=== PATIENT | male | born 1965 | race Caucasian/White ===

== ENCOUNTER 2018-04-15 22:00 | Inpatient (IN) | payer MEDICARE, MEDICAID ==
[2018-04-15] MEDS: VANCOMYCIN HCL 1,000 MG, VIAL MATE ADAPTER 1 EACH in D5W 250 ML IV (22:45)
[2018-04-15] MEDS: ONDANSETRON 4MG/2ML VIAL (J2405) IV (22:45)
[2018-04-15 23:11] LABS: BASO # 0.1 10^3/uL (0.0-0.2); BASO % 0.3 % (0.0-1.0); EOS # 0.3 10^3/uL (0.0-0.50); EOS % 1.6 % (0.0-3.0); HEMATOCRIT 39.9 % (42.0-52.0); HEMOGLOBIN 12.4 g/dl (13.5-17.5); IMMATURE GRANULOCYTE % 1.1 % (0-3.0); LYMPH # 1.3 10^3/uL (1.5-4.5); LYMPH % 6.7 % (24.0-44.0); MEAN CORPUSCULAR HEMOGLOBIN 26.1 pg (27.0-33.0); MEAN CORPUSCULAR HGB CONC 31.1 g/dl (32.0-36.5); MEAN CORPUSCULAR VOLUME 83.8 fl (80.0-96.0); MONO # 1.2 10^3/uL (0.0-0.8); MONO % 6.3 % (0.0-5.0); NEUTROPHILS # 15.7 10^3/uL (1.8-7.7); PLATELET COUNT, AUTOMATED 256 10^3/uL (150-450); RED BLOOD COUNT 4.76 10^6/uL (4.30-6.10); RED CELL DISTRIBUTION WIDTH 13.9 % (11.5-14.5); WHITE BLOOD COUNT 18.7 10^3/uL (4.0-10.0)
[2018-04-15 23:23] LABS: INR 1.34; PROTHROMBIN TIME 16.8 SECONDS (12.1-14.4)
[2018-04-15 23:24] LABS: PARTIAL THROMBOPLASTIN TIME 37.9 SECONDS (25.4-37.6)
[2018-04-15] MEDS: MORPHINE 2 MG/ML 1ML SYRINGE (J2270) IV (23:27)
[2018-04-15] MEDS: PIPERACILLIN/TAZOBACTAM SOD 3.375 GM in D5W MINI-BAG PLUS 50 ML IV (23:30)
[2018-04-15 23:38] LABS: ERYTHROCYTE SEDIMENTATION RATE 42 mm/hr (0-20)
[2018-04-15] MEDS: NS 1,000 ML IV (23:39)
[2018-04-15] MEDS ORDERED: ONDANSETRON 4MG/2ML VIAL (J2405) IV (23:45)
[2018-04-15] MEDS ORDERED: GLUCAGON FOR INJ 1 MG VIAL (J1610) SC (23:45)
[2018-04-15] MEDS ORDERED: DEXTROSE 50% 50 ML SYRINGE IV (23:45)
[2018-04-15] MEDS ORDERED: GLUCOSE 4 GM CHEW TABLET PO (23:45)
[2018-04-15] MEDS: ACETAMINOPHEN TAB 650MG DOSE (2X325MG) PO (23:47)
[2018-04-16 00:08] LABS: ALBUMIN 2.7 GM/DL (3.2-5.2); ALBUMIN/GLOBULIN RATIO 0.51 (1.00-1.93); ALKALINE PHOSPHATASE 114 U/L (45-117); ALT/SGPT 18 U/L (12-78); ANION GAP 7 MEQ/L (8-16); AST/SGOT 21 U/L (7-37); BILIRUBIN,DIRECT 0.2 MG/DL (0.0-0.2); BILIRUBIN,TOTAL 0.4 MG/DL (0.2-1.0); BLOOD UREA NITROGEN 44 MG/DL (7-18); CALCIUM LEVEL 7.8 MG/DL (8.5-10.1); CARBON DIOXIDE LEVEL 24 MEQ/L (21-32); CHLORIDE LEVEL 99 MEQ/L (98-107); CPK CREATINE PHOSPHOKINASE 407 U/L (39-308); CREATININE FOR GFR 2.75 MG/DL (0.70-1.30); GLUCOSE, FASTING 290 MG/DL (70-100); MB/CK RELATIVE INDEX 0.91 (< OR =4); POTASSIUM SERUM 5.6 MEQ/L (3.5-5.1); SODIUM LEVEL 130 MEQ/L (136-145); TROPONIN I < 0.02 NG/ML (< 0.10)
[2018-04-16] MEDS ORDERED: CYCLOBENZAPRINE 5MG TABLET PO (01:45)
[2018-04-16] MEDS ORDERED: traZODone 100 MG TAB PO (01:45)
[2018-04-16 01:49] LABS: BEDSIDE GLUCOSE 274 MG/DL (70-105)
[2018-04-16 05:40] LABS: BASO # 0.1 10^3/uL (0.0-0.2); BASO % 0.3 % (0.0-1.0); EOS # 0.4 10^3/uL (0.0-0.50); EOS % 2.4 % (0.0-3.0); HEMATOCRIT 34.6 % (42.0-52.0); HEMOGLOBIN 10.7 g/dl (13.5-17.5); IMMATURE GRANULOCYTE % 1.3 % (0-3.0); LYMPH # 1.7 10^3/uL (1.5-4.5); LYMPH % 10.4 % (24.0-44.0); MEAN CORPUSCULAR HEMOGLOBIN 26.1 pg (27.0-33.0); MEAN CORPUSCULAR HGB CONC 30.9 g/dl (32.0-36.5); MEAN CORPUSCULAR VOLUME 84.4 fl (80.0-96.0); MONO # 1.1 10^3/uL (0.0-0.8); MONO % 6.7 % (0.0-5.0); NEUTROPHILS # 12.6 10^3/uL (1.8-7.7); NEUTROPHILS % 78.9 % (36.0-66.0); PLATELET COUNT, AUTOMATED 244 10^3/uL (150-450)
[2018-04-16] MEDS: SLF 3 ML SYR IV ×3 (06:00→20:14)
[2018-04-16 06:02] LABS: ANION GAP 5 MEQ/L (8-16); BLOOD UREA NITROGEN 44 MG/DL (7-18); CARBON DIOXIDE LEVEL 27 MEQ/L (21-32); CHLORIDE LEVEL 101 MEQ/L (98-107); CREATININE FOR GFR 2.62 MG/DL (0.70-1.30); GLOMERULAR FILTRATION RATE 27.5 (>56); GLUCOSE, FASTING 214 MG/DL (70-100); POTASSIUM SERUM 4.6 MEQ/L (3.5-5.1); SODIUM LEVEL 133 MEQ/L (136-145)
[2018-04-16] MEDS: PIPERACILLIN/TAZOBACTAM SOD 3.375 GM in D5W MINI-BAG PLUS 50 ML IV ×4 (06:25→23:31)
[2018-04-16] MEDS: PANTOPRAZOLE 40MG INJ (PROTONIX) (C9113) IV (06:25)
[2018-04-16] MEDS: HumaLOG INSULIN (NovoLOG) PER UNIT SC ×5 (06:26→20:13)
[2018-04-16] MEDS: HEPARIN SOD (PORCINE) 5000 UNITS/ML VIAL SQ ×3 (06:26→20:14)
[2018-04-16 06:39] LABS: BEDSIDE GLUCOSE 231 MG/DL (70-105)
[2018-04-16] MEDS: TAMSULOSIN 0.4 MG CAP PO (07:47)
[2018-04-16] MEDS: PREGABALIN 100 MG CAP (LYRICA) PO ×3 (07:47→20:13)
[2018-04-16] MEDS: NORCO, ANEXSIA 5/325MG TABLET (HYDROcodone/ACETAMINOPHEN) PO ×4 (07:47→23:41)
[2018-04-16] MEDS: METOPROLOL SUCC *XL* 25MG TAB (TopROL *XL*) PO (07:48)
[2018-04-16] MEDS: LEVEMIR (INSULIN DETEMIR) 1 UNITS/0.01ML SC ×2 (07:48→20:14)
[2018-04-16] MEDS: CLOPIDOGREL 75 MG TAB PO ×2 (09:00→12:47)
[2018-04-16] MEDS: ASPIRIN 81 MG ENTERIC TAB PO ×2 (09:00→12:47)
[2018-04-16] MEDS ORDERED: ENOXAPARIN 40 MG/0.4 ML SYRINGE (J1650) SC (09:00)
[2018-04-16] MEDS: NS 1,000 ML IV ×2 (09:39→20:13)
[2018-04-16] MEDS: MIRTAZAPINE 15 MG TAB PO (09:52)
[2018-04-16] MEDS: ATORVASTATIN 20 MG TAB PO (09:52)
[2018-04-16] MEDS: VENLAFAXINE 25 MG TAB PO (09:52)
[2018-04-16] MEDS: FLUBLOK(EGG FREE)(QUAD)INFLUENZA VACC 0.5ML SYRINGE (90682)18YRS&OLDER IM (09:53)
[2018-04-16 11:58] LABS: BEDSIDE GLUCOSE 255 MG/DL (70-105)
[2018-04-16] MEDS: VANCOMYCIN HCL 1,000 MG, VIAL MATE ADAPTER 1 EACH in D5W 250 ML IV (13:20)
[2018-04-16 16:42] LABS: BEDSIDE GLUCOSE 339 MG/DL (70-105)
[2018-04-16 20:05] LABS: BEDSIDE GLUCOSE 352 MG/DL (70-105)
[2018-04-16] MEDS: ACETAMINOPHEN TAB 650MG DOSE (2X325MG) PO (22:33)
[2018-04-17] MEDS: PANTOPRAZOLE 40MG INJ (PROTONIX) (C9113) IV (05:29)
[2018-04-17] MEDS: SLF 3 ML SYR IV ×3 (05:30→21:33)
[2018-04-17] MEDS: HEPARIN SOD (PORCINE) 5000 UNITS/ML VIAL SQ ×3 (05:30→21:31)
[2018-04-17] MEDS: PIPERACILLIN/TAZOBACTAM SOD 3.375 GM in D5W MINI-BAG PLUS 50 ML IV ×3 (05:30→17:15)
[2018-04-17 06:19] LABS: BASO % 0.3 % (0.0-1.0); EOS # 0.5 10^3/uL (0.0-0.50); EOS % 3.9 % (0.0-3.0); HEMATOCRIT 32.3 % (42.0-52.0); HEMOGLOBIN 9.9 g/dl (13.5-17.5); IMMATURE GRANULOCYTE % 0.9 % (0-3.0); LYMPH # 1.5 10^3/uL (1.5-4.5); LYMPH % 11.5 % (24.0-44.0); MEAN CORPUSCULAR HEMOGLOBIN 25.6 pg (27.0-33.0); MEAN CORPUSCULAR HGB CONC 30.7 g/dl (32.0-36.5); MEAN CORPUSCULAR VOLUME 83.5 fl (80.0-96.0); MONO # 0.8 10^3/uL (0.0-0.8); NEUTROPHILS % 77.4 % (36.0-66.0); PLATELET COUNT, AUTOMATED 235 10^3/uL (150-450); RED BLOOD COUNT 3.87 10^6/uL (4.30-6.10); RED CELL DISTRIBUTION WIDTH 13.9 % (11.5-14.5); WHITE BLOOD COUNT 12.9 10^3/uL (4.0-10.0)
[2018-04-17 06:44] LABS: ANION GAP 6 MEQ/L (8-16); BLOOD UREA NITROGEN 41 MG/DL (7-18); CARBON DIOXIDE LEVEL 26 MEQ/L (21-32); CHLORIDE LEVEL 105 MEQ/L (98-107); CREATININE FOR GFR 2.57 MG/DL (0.70-1.30); GLOMERULAR FILTRATION RATE 28.1 (>56); GLUCOSE, FASTING 231 MG/DL (70-100); POTASSIUM SERUM 4.7 MEQ/L (3.5-5.1); SODIUM LEVEL 137 MEQ/L (136-145); VANCOMYCIN LEVEL TROUGH 11.3 UG/ML (10.0-20.0)
[2018-04-17] MEDS: VANCOMYCIN HCL 1,000 MG, VIAL MATE ADAPTER 1 EACH in D5W 250 ML IV (06:54)
[2018-04-17] MEDS: PREGABALIN 100 MG CAP (LYRICA) PO ×3 (08:38→21:32)
[2018-04-17] MEDS: CLOPIDOGREL 75 MG TAB PO (08:38)
[2018-04-17] MEDS: MIRTAZAPINE 15 MG TAB PO (08:38)
[2018-04-17] MEDS: TAMSULOSIN 0.4 MG CAP PO (08:38)
[2018-04-17] MEDS: ATORVASTATIN 20 MG TAB PO (08:38)
[2018-04-17] MEDS: VENLAFAXINE 25 MG TAB PO (08:38)
[2018-04-17] MEDS: ASPIRIN 81 MG ENTERIC TAB PO (08:39)
[2018-04-17] MEDS: METOPROLOL SUCC *XL* 25MG TAB (TopROL *XL*) PO (08:39)
[2018-04-17] MEDS: LEVEMIR (INSULIN DETEMIR) 1 UNITS/0.01ML SC ×2 (08:40→21:31)
[2018-04-17] MEDS: HumaLOG INSULIN (NovoLOG) PER UNIT SC ×4 (08:40→21:32)
[2018-04-17] MEDS: VANCOMYCIN HCL 500 MG in D5W MINI-BAG PLUS 100 ML IV (08:40)
[2018-04-17 11:36] LABS: BEDSIDE GLUCOSE 299 MG/DL (70-105)
[2018-04-17] MEDS: NS 1,000 ML IV ×2 (15:35→21:00)
[2018-04-17 17:05] LABS: BEDSIDE GLUCOSE 347 MG/DL (70-105)
[2018-04-17] MEDS: ACETAMINOPHEN TAB 650MG DOSE (2X325MG) PO (18:50)
[2018-04-17 21:25] LABS: BEDSIDE GLUCOSE 358 MG/DL (70-105)
[2018-04-17] MEDS: NORCO, ANEXSIA 5/325MG TABLET (HYDROcodone/ACETAMINOPHEN) PO (21:32)
[2018-04-18] MEDS: PIPERACILLIN/TAZOBACTAM SOD 3.375 GM in D5W MINI-BAG PLUS 50 ML IV ×4 (00:01→18:14)
[2018-04-18] MEDS: VANCOMYCIN HCL 1,000 MG, VIAL MATE ADAPTER 1 EACH in D5W 250 ML IV ×2 (01:18→19:19)
[2018-04-18] MEDS: NS 1,000 ML IV ×3 (05:32→19:18)
[2018-04-18 06:20] LABS: BASO % 0.3 % (0.0-1.0); EOS # 0.5 10^3/uL (0.0-0.50); EOS % 3.7 % (0.0-3.0); HEMATOCRIT 31.8 % (42.0-52.0); HEMOGLOBIN 9.9 g/dl (13.5-17.5); IMMATURE GRANULOCYTE % 1.5 % (0-3.0); LYMPH # 1.5 10^3/uL (1.5-4.5); LYMPH % 12.4 % (24.0-44.0); MEAN CORPUSCULAR HEMOGLOBIN 26.3 pg (27.0-33.0); MEAN CORPUSCULAR HGB CONC 31.1 g/dl (32.0-36.5); MEAN CORPUSCULAR VOLUME 84.4 fl (80.0-96.0); MONO # 0.8 10^3/uL (0.0-0.8); MONO % 6.8 % (0.0-5.0); NEUTROPHILS # 9.2 10^3/uL (1.8-7.7); NEUTROPHILS % 75.3 % (36.0-66.0); PLATELET COUNT, AUTOMATED 240 10^3/uL (150-450); RED BLOOD COUNT 3.77 10^6/uL (4.30-6.10); WHITE BLOOD COUNT 12.2 10^3/uL (4.0-10.0)
[2018-04-18] MEDS: HEPARIN SOD (PORCINE) 5000 UNITS/ML VIAL SQ ×3 (06:41→20:14)
[2018-04-18] MEDS: PANTOPRAZOLE 40MG INJ (PROTONIX) (C9113) IV (06:41)
[2018-04-18] MEDS: SLF 3 ML SYR IV ×3 (06:41→20:15)
[2018-04-18 06:45] LABS: ANION GAP 4 MEQ/L (8-16); BLOOD UREA NITROGEN 31 MG/DL (7-18); CALCIUM LEVEL 8.4 MG/DL (8.5-10.1); CARBON DIOXIDE LEVEL 27 MEQ/L (21-32); CHLORIDE LEVEL 105 MEQ/L (98-107); CREATININE FOR GFR 2.28 MG/DL (0.70-1.30); GLOMERULAR FILTRATION RATE 32.3 (>56); GLUCOSE, FASTING 304 MG/DL (70-100); POTASSIUM SERUM 4.7 MEQ/L (3.5-5.1); SODIUM LEVEL 136 MEQ/L (136-145)
[2018-04-18] MEDS: CLOPIDOGREL 75 MG TAB PO (08:41)
[2018-04-18] MEDS: ATORVASTATIN 20 MG TAB PO (08:41)
[2018-04-18] MEDS: ASPIRIN 81 MG ENTERIC TAB PO (08:42)
[2018-04-18] MEDS: MIRTAZAPINE 15 MG TAB PO (08:42)
[2018-04-18] MEDS: TAMSULOSIN 0.4 MG CAP PO (08:42)
[2018-04-18] MEDS: VENLAFAXINE 25 MG TAB PO (08:42)
[2018-04-18] MEDS: PREGABALIN 100 MG CAP (LYRICA) PO ×3 (08:42→20:14)
[2018-04-18] MEDS: METOPROLOL SUCC *XL* 25MG TAB (TopROL *XL*) PO (08:42)
[2018-04-18] MEDS: HumaLOG INSULIN (NovoLOG) PER UNIT SC ×4 (09:21→20:18)
[2018-04-18] MEDS: LEVEMIR (INSULIN DETEMIR) 1 UNITS/0.01ML SC ×2 (09:22→20:15)
[2018-04-18 12:09] LABS: BEDSIDE GLUCOSE 261 MG/DL (70-105)
[2018-04-18 16:35] LABS: BEDSIDE GLUCOSE 328 MG/DL (70-105)
[2018-04-18 18:21] LABS: VANCOMYCIN LEVEL TROUGH 14.3 UG/ML (10.0-20.0)
[2018-04-18] MEDS: ACETAMINOPHEN TAB 650MG DOSE (2X325MG) PO (20:14)
[2018-04-18 20:26] LABS: BEDSIDE GLUCOSE 316 MG/DL (70-105)
[2018-04-19] MEDS: SLF 3 ML SYR IV ×3 (06:00→20:42)
[2018-04-19] MEDS: PANTOPRAZOLE 40MG INJ (PROTONIX) (C9113) IV (06:18)
[2018-04-19] MEDS: PIPERACILLIN/TAZOBACTAM SOD 3.375 GM in D5W MINI-BAG PLUS 50 ML IV ×5 (06:18→23:37)
[2018-04-19] MEDS: HEPARIN SOD (PORCINE) 5000 UNITS/ML VIAL SQ ×3 (06:19→20:42)
[2018-04-19 08:20] LABS: HEMATOCRIT 33.2 % (42.0-52.0); HEMOGLOBIN 10.4 g/dl (13.5-17.5); MEAN CORPUSCULAR HEMOGLOBIN 26.1 pg (27.0-33.0); MEAN CORPUSCULAR HGB CONC 31.3 g/dl (32.0-36.5); MEAN CORPUSCULAR VOLUME 83.4 fl (80.0-96.0); PLATELET COUNT, AUTOMATED 276 10^3/uL (150-450); RED BLOOD COUNT 3.98 10^6/uL (4.30-6.10); RED CELL DISTRIBUTION WIDTH 13.9 % (11.5-14.5); WHITE BLOOD COUNT 11.9 10^3/uL (4.0-10.0)
[2018-04-19 08:29] LABS: ANION GAP 7 MEQ/L (8-16); BLOOD UREA NITROGEN 23 MG/DL (7-18); CALCIUM LEVEL 8.3 MG/DL (8.5-10.1); CARBON DIOXIDE LEVEL 26 MEQ/L (21-32); CHLORIDE LEVEL 105 MEQ/L (98-107); CREATININE FOR GFR 1.94 MG/DL (0.70-1.30); GLOMERULAR FILTRATION RATE 38.9 (>56); GLUCOSE, FASTING 159 MG/DL (70-100); MAGNESIUM LEVEL 1.8 MG/DL (1.8-2.4); POTASSIUM SERUM 4.3 MEQ/L (3.5-5.1); SODIUM LEVEL 138 MEQ/L (136-145)
[2018-04-19] MEDS: CLOPIDOGREL 75 MG TAB PO (09:20)
[2018-04-19] MEDS: ASPIRIN 81 MG ENTERIC TAB PO (09:20)
[2018-04-19] MEDS: PREGABALIN 100 MG CAP (LYRICA) PO ×3 (09:20→20:42)
[2018-04-19] MEDS: ATORVASTATIN 20 MG TAB PO (09:21)
[2018-04-19] MEDS: HumaLOG INSULIN (NovoLOG) PER UNIT SC ×4 (09:21→20:42)
[2018-04-19] MEDS: VENLAFAXINE 25 MG TAB PO (09:21)
[2018-04-19] MEDS: MIRTAZAPINE 15 MG TAB PO (09:21)
[2018-04-19] MEDS: NS 1,000 ML IV ×3 (09:21→22:54)
[2018-04-19] MEDS: TAMSULOSIN 0.4 MG CAP PO (09:21)
[2018-04-19] MEDS: LEVEMIR (INSULIN DETEMIR) 1 UNITS/0.01ML SC ×2 (09:22→20:42)
[2018-04-19] MEDS: METOPROLOL SUCC *XL* 25MG TAB (TopROL *XL*) PO (09:22)
[2018-04-19 11:33] LABS: BEDSIDE GLUCOSE 201 MG/DL (70-105)
[2018-04-19] MEDS: VANCOMYCIN HCL 1,000 MG, VIAL MATE ADAPTER 1 EACH in D5W 250 ML IV (14:08)
[2018-04-19 16:43] LABS: BEDSIDE GLUCOSE 191 MG/DL (70-105)
[2018-04-19 20:12] LABS: BEDSIDE GLUCOSE 173 MG/DL (70-105)
[2018-04-19] MEDS: NORCO, ANEXSIA 5/325MG TABLET (HYDROcodone/ACETAMINOPHEN) PO (23:40)
[2018-04-20] MEDS: PIPERACILLIN/TAZOBACTAM SOD 3.375 GM in D5W MINI-BAG PLUS 50 ML IV ×3 (04:58→17:40)
[2018-04-20] MEDS: HEPARIN SOD (PORCINE) 5000 UNITS/ML VIAL SQ ×3 (04:58→22:16)
[2018-04-20] MEDS: PANTOPRAZOLE 40MG INJ (PROTONIX) (C9113) IV (04:58)
[2018-04-20] MEDS: SLF 3 ML SYR IV ×3 (04:59→21:45)
[2018-04-20 05:52] LABS: HEMATOCRIT 32.6 % (42.0-52.0); HEMOGLOBIN 10.3 g/dl (13.5-17.5); MEAN CORPUSCULAR HEMOGLOBIN 26.1 pg (27.0-33.0); MEAN CORPUSCULAR HGB CONC 31.6 g/dl (32.0-36.5); MEAN CORPUSCULAR VOLUME 82.7 fl (80.0-96.0); PLATELET COUNT, AUTOMATED 287 10^3/uL (150-450); RED BLOOD COUNT 3.94 10^6/uL (4.30-6.10); RED CELL DISTRIBUTION WIDTH 13.9 % (11.5-14.5)
[2018-04-20] MEDS ORDERED: ISOVUE-300 61% 50ML VIAL (Q9967) As Ordered (06:07)
[2018-04-20] MEDS ORDERED: fentaNYL 100 MCG/2 ML INJECTION (J3010) As Ordered ×3 (06:07→20:44)
[2018-04-20] MEDS ORDERED: HEPARIN 1,000 UNITS/ML 10ML VIAL (FOR RADIOLOGY& DIALYSIS ONLY) As Ordered (06:07)
[2018-04-20] MEDS ORDERED: MIDAZOLAM INJ 2 MG/2 ML VIAL (J2250) As Ordered ×2 (06:07→20:09)
[2018-04-20] MEDS: VANCOMYCIN HCL 1,000 MG, VIAL MATE ADAPTER 1 EACH in D5W 250 ML IV ×2 (06:08→21:35)
[2018-04-20] MEDS ORDERED: LIDOCAINE 2% MDV 20 ML VIAL As Ordered (06:16)
[2018-04-20 06:28] LABS: ANION GAP 7 MEQ/L (8-16); BLOOD UREA NITROGEN 22 MG/DL (7-18); CALCIUM LEVEL 8.1 MG/DL (8.5-10.1); CARBON DIOXIDE LEVEL 26 MEQ/L (21-32); CHLORIDE LEVEL 103 MEQ/L (98-107); CREATININE FOR GFR 1.95 MG/DL (0.70-1.30); GLOMERULAR FILTRATION RATE 38.7 (>56); GLUCOSE, FASTING 221 MG/DL (70-100); MAGNESIUM LEVEL 1.9 MG/DL (1.8-2.4); POTASSIUM SERUM 4.1 MEQ/L (3.5-5.1); SODIUM LEVEL 136 MEQ/L (136-145)
[2018-04-20] MEDS: HumaLOG INSULIN (NovoLOG) PER UNIT SC ×4 (07:30→21:51)
[2018-04-20] MEDS: NS 0.45% 1,000 ML IV ×2 (09:00→21:35)
[2018-04-20] MEDS: ASPIRIN 81 MG ENTERIC TAB PO (09:18)
[2018-04-20] MEDS: TAMSULOSIN 0.4 MG CAP PO (09:18)
[2018-04-20] MEDS: VENLAFAXINE 25 MG TAB PO (09:18)
[2018-04-20] MEDS: ATORVASTATIN 20 MG TAB PO (09:19)
[2018-04-20] MEDS: PREGABALIN 100 MG CAP (LYRICA) PO ×3 (09:19→22:15)
[2018-04-20] MEDS: CLOPIDOGREL 75 MG TAB PO (09:19)
[2018-04-20] MEDS: LEVEMIR (INSULIN DETEMIR) 1 UNITS/0.01ML SC ×2 (09:20→22:16)
[2018-04-20] MEDS: METOPROLOL SUCC *XL* 25MG TAB (TopROL *XL*) PO (09:20)
[2018-04-20] MEDS: MIRTAZAPINE 15 MG TAB PO (09:20)
[2018-04-20 11:49] LABS: BEDSIDE GLUCOSE 97 MG/DL (70-105)
[2018-04-20 18:38] LABS: VANCOMYCIN RANDOM 16.4 UG/ML
[2018-04-20] MEDS ORDERED: PROPOFOL 200 MG/20 ML VIAL As Ordered (20:09)
[2018-04-20] MEDS ORDERED: LIDOCAINE 2% INJ 100 MG/5 ML SDV (FOR ANES.) As Ordered (20:09)
[2018-04-20] MEDS ORDERED: ONDANSETRON 4MG/2ML VIAL (J2405) As Ordered (20:09)
[2018-04-20] MEDS ORDERED: dexameTHASONE 4 MG/ML 1ML VIAL (J1100) As Ordered (20:10)
[2018-04-20] MEDS ORDERED: PHENYLephrine HCL 500 MCG/5 ML (100MCG/ML) SYRINGE (J2370) As Ordered (20:11)
[2018-04-20] MEDS ORDERED: ONDANSETRON 4MG/2ML VIAL (J2405) IV (20:45)
[2018-04-20] MEDS: fentaNYL 100 MCG/2 ML INJECTION (J3010) IV ×2 (20:45→20:50)
[2018-04-20] MEDS: NS 1,000 ML IV (21:45)
[2018-04-20 21:52] LABS: BEDSIDE GLUCOSE 123 MG/DL (70-105)
[2018-04-20] MEDS: MORPHINE 4 MG/ML 1ML VIAL/SYRINGE (J2270) IV ×2 (23:00→23:38)
[2018-04-21] MEDS: PIPERACILLIN/TAZOBACTAM SOD 3.375 GM in D5W MINI-BAG PLUS 50 ML IV ×4 (00:08→17:38)
[2018-04-21] MEDS: MORPHINE 4 MG/ML 1ML VIAL/SYRINGE (J2270) IV (00:09)
[2018-04-21] MEDS: NORCO, ANEXSIA 5/325MG TABLET (HYDROcodone/ACETAMINOPHEN) PO ×3 (00:53→14:47)
[2018-04-21 05:17] LABS: HEMATOCRIT 33.8 % (42.0-52.0); HEMOGLOBIN 10.5 g/dl (13.5-17.5); MEAN CORPUSCULAR HEMOGLOBIN 25.7 pg (27.0-33.0); MEAN CORPUSCULAR HGB CONC 31.1 g/dl (32.0-36.5); MEAN CORPUSCULAR VOLUME 82.6 fl (80.0-96.0); PLATELET COUNT, AUTOMATED 317 10^3/uL (150-450); RED BLOOD COUNT 4.09 10^6/uL (4.30-6.10); RED CELL DISTRIBUTION WIDTH 13.8 % (11.5-14.5); WHITE BLOOD COUNT 11.1 10^3/uL (4.0-10.0)
[2018-04-21] MEDS: PANTOPRAZOLE 40MG INJ (PROTONIX) (C9113) IV (05:20)
[2018-04-21] MEDS: HEPARIN SOD (PORCINE) 5000 UNITS/ML VIAL SQ ×3 (05:21→21:02)
[2018-04-21] MEDS: SLF 3 ML SYR IV ×3 (05:22→21:03)
[2018-04-21 05:40] LABS: ANION GAP 7 MEQ/L (8-16); BLOOD UREA NITROGEN 23 MG/DL (7-18); CALCIUM LEVEL 8.2 MG/DL (8.5-10.1); CARBON DIOXIDE LEVEL 26 MEQ/L (21-32); CHLORIDE LEVEL 100 MEQ/L (98-107); CREATININE FOR GFR 1.92 MG/DL (0.70-1.30); GLOMERULAR FILTRATION RATE 39.3 (>56); GLUCOSE, FASTING 327 MG/DL (70-100); MAGNESIUM LEVEL 2.1 MG/DL (1.8-2.4); POTASSIUM SERUM 5.3 MEQ/L (3.5-5.1); SODIUM LEVEL 133 MEQ/L (136-145)
[2018-04-21] MEDS: VANCOMYCIN HCL 1,000 MG, VIAL MATE ADAPTER 1 EACH in D5W 250 ML IV ×2 (09:12→21:02)
[2018-04-21] MEDS: HumaLOG INSULIN (NovoLOG) PER UNIT SC ×4 (09:12→21:03)
[2018-04-21] MEDS: PREGABALIN 100 MG CAP (LYRICA) PO ×3 (09:13→21:02)
[2018-04-21] MEDS: VENLAFAXINE 25 MG TAB PO (09:13)
[2018-04-21] MEDS: ATORVASTATIN 20 MG TAB PO (09:13)
[2018-04-21] MEDS: CLOPIDOGREL 75 MG TAB PO (09:13)
[2018-04-21] MEDS: ASPIRIN 81 MG ENTERIC TAB PO (09:13)
[2018-04-21] MEDS: MIRTAZAPINE 15 MG TAB PO (09:13)
[2018-04-21] MEDS: TAMSULOSIN 0.4 MG CAP PO (09:13)
[2018-04-21] MEDS: METOPROLOL SUCC *XL* 25MG TAB (TopROL *XL*) PO (09:14)
[2018-04-21] MEDS: LEVEMIR (INSULIN DETEMIR) 1 UNITS/0.01ML SC ×2 (09:14→21:02)
[2018-04-21 11:30] LABS: BEDSIDE GLUCOSE 358 MG/DL (70-105)
[2018-04-21] MEDS: NS 0.45% 1,000 ML IV (11:52)
[2018-04-21] MEDS: PATIROMER SORBITEX CALCIUM 8.4 GM POWDER PACKET (VELTASSA) PO (11:52)
[2018-04-21 17:26] LABS: BEDSIDE GLUCOSE 322 MG/DL (70-105)
[2018-04-21 20:12] LABS: BEDSIDE GLUCOSE 361 MG/DL (70-105)
[2018-04-22] MEDS: PIPERACILLIN/TAZOBACTAM SOD 3.375 GM in D5W MINI-BAG PLUS 50 ML IV ×4 (00:15→17:54)
[2018-04-22] MEDS: SLF 3 ML SYR IV ×3 (05:44→21:09)
[2018-04-22] MEDS: PANTOPRAZOLE 40MG INJ (PROTONIX) (C9113) IV (05:44)
[2018-04-22] MEDS: HEPARIN SOD (PORCINE) 5000 UNITS/ML VIAL SQ ×3 (05:44→21:10)
[2018-04-22 06:58] LABS: HEMATOCRIT 32.6 % (42.0-52.0); HEMOGLOBIN 10.2 g/dl (13.5-17.5); MEAN CORPUSCULAR HEMOGLOBIN 25.8 pg (27.0-33.0); MEAN CORPUSCULAR HGB CONC 31.3 g/dl (32.0-36.5); MEAN CORPUSCULAR VOLUME 82.3 fl (80.0-96.0); PLATELET COUNT, AUTOMATED 283 10^3/uL (150-450); RED BLOOD COUNT 3.96 10^6/uL (4.30-6.10); RED CELL DISTRIBUTION WIDTH 13.7 % (11.5-14.5); WHITE BLOOD COUNT 9.4 10^3/uL (4.0-10.0)
[2018-04-22 07:21] LABS: VANCOMYCIN LEVEL TROUGH 23.9 UG/ML (10.0-20.0)
[2018-04-22 07:22] LABS: ANION GAP 7 MEQ/L (8-16); BLOOD UREA NITROGEN 27 MG/DL (7-18); CALCIUM LEVEL 8.4 MG/DL (8.5-10.1); CARBON DIOXIDE LEVEL 29 MEQ/L (21-32); CHLORIDE LEVEL 102 MEQ/L (98-107); CREATININE FOR GFR 1.96 MG/DL (0.70-1.30); GLOMERULAR FILTRATION RATE 38.4 (>56); GLUCOSE, FASTING 292 MG/DL (70-100); POTASSIUM SERUM 4.4 MEQ/L (3.5-5.1); SODIUM LEVEL 138 MEQ/L (136-145)
[2018-04-22] MEDS: HumaLOG INSULIN (NovoLOG) PER UNIT SC ×4 (08:10→21:10)
[2018-04-22] MEDS: LEVEMIR (INSULIN DETEMIR) 1 UNITS/0.01ML SC ×2 (08:11→21:10)
[2018-04-22] MEDS: ASPIRIN 81 MG ENTERIC TAB PO (08:11)
[2018-04-22] MEDS: TAMSULOSIN 0.4 MG CAP PO (08:11)
[2018-04-22] MEDS: VENLAFAXINE 25 MG TAB PO (08:11)
[2018-04-22] MEDS: CLOPIDOGREL 75 MG TAB PO (08:11)
[2018-04-22] MEDS: PREGABALIN 100 MG CAP (LYRICA) PO ×3 (08:11→21:09)
[2018-04-22] MEDS: ATORVASTATIN 20 MG TAB PO (08:12)
[2018-04-22] MEDS: MIRTAZAPINE 15 MG TAB PO (08:12)
[2018-04-22] MEDS: METOPROLOL SUCC *XL* 25MG TAB (TopROL *XL*) PO (08:13)
[2018-04-22 11:49] LABS: BEDSIDE GLUCOSE 178 MG/DL (70-105)
[2018-04-22] MEDS: VANCOMYCIN HCL 1,000 MG, VIAL MATE ADAPTER 1 EACH in D5W 250 ML IV (14:15)
[2018-04-22] MEDS: NORCO, ANEXSIA 5/325MG TABLET (HYDROcodone/ACETAMINOPHEN) PO ×2 (15:06→21:09)
[2018-04-22 17:04] LABS: BEDSIDE GLUCOSE 243 MG/DL (70-105)
[2018-04-22 19:51] LABS: BEDSIDE GLUCOSE 251 MG/DL (70-105)
[2018-04-23] MEDS: SLF 3 ML SYR IV ×3 (00:07→13:00)
[2018-04-23] MEDS: PIPERACILLIN/TAZOBACTAM SOD 3.375 GM in D5W MINI-BAG PLUS 50 ML IV ×3 (00:07→11:52)
[2018-04-23] MEDS: PANTOPRAZOLE 40MG INJ (PROTONIX) (C9113) IV (05:33)
[2018-04-23] MEDS: HEPARIN SOD (PORCINE) 5000 UNITS/ML VIAL SQ ×2 (05:33→14:02)
[2018-04-23 06:01] LABS: HEMATOCRIT 32.3 % (42.0-52.0); HEMOGLOBIN 9.9 g/dl (13.5-17.5); MEAN CORPUSCULAR HEMOGLOBIN 25.5 pg (27.0-33.0); MEAN CORPUSCULAR HGB CONC 30.7 g/dl (32.0-36.5); MEAN CORPUSCULAR VOLUME 83.2 fl (80.0-96.0); PLATELET COUNT, AUTOMATED 280 10^3/uL (150-450); RED BLOOD COUNT 3.88 10^6/uL (4.30-6.10); RED CELL DISTRIBUTION WIDTH 13.9 % (11.5-14.5); WHITE BLOOD COUNT 9.4 10^3/uL (4.0-10.0)
[2018-04-23 06:26] LABS: ANION GAP 8 MEQ/L (8-16); BLOOD UREA NITROGEN 30 MG/DL (7-18); CALCIUM LEVEL 8.5 MG/DL (8.5-10.1); CARBON DIOXIDE LEVEL 28 MEQ/L (21-32); CHLORIDE LEVEL 102 MEQ/L (98-107); CREATININE FOR GFR 1.85 MG/DL (0.70-1.30); GLOMERULAR FILTRATION RATE 41.1 (>56); GLUCOSE, FASTING 246 MG/DL (70-100); MAGNESIUM LEVEL 1.8 MG/DL (1.8-2.4); POTASSIUM SERUM 4.2 MEQ/L (3.5-5.1); SODIUM LEVEL 138 MEQ/L (136-145)
[2018-04-23] MEDS: ASPIRIN 81 MG ENTERIC TAB PO (08:20)
[2018-04-23] MEDS: VENLAFAXINE 25 MG TAB PO (08:20)
[2018-04-23] MEDS: METOPROLOL SUCC *XL* 25MG TAB (TopROL *XL*) PO (08:20)
[2018-04-23] MEDS: MIRTAZAPINE 15 MG TAB PO (08:20)
[2018-04-23] MEDS: ATORVASTATIN 20 MG TAB PO (08:20)
[2018-04-23] MEDS: PREGABALIN 100 MG CAP (LYRICA) PO (08:20)
[2018-04-23] MEDS: CLOPIDOGREL 75 MG TAB PO (08:20)
[2018-04-23] MEDS: VANCOMYCIN HCL 1,000 MG, VIAL MATE ADAPTER 1 EACH in D5W 250 ML IV (08:20)
[2018-04-23] MEDS: HumaLOG INSULIN (NovoLOG) PER UNIT SC ×2 (08:20→12:21)
[2018-04-23] MEDS: TAMSULOSIN 0.4 MG CAP PO (08:20)
[2018-04-23] MEDS: LEVEMIR (INSULIN DETEMIR) 1 UNITS/0.01ML SC (08:21)
[2018-04-23 12:02] LABS: BEDSIDE GLUCOSE 313 MG/DL (70-105)
== END 2018-04-23 15:22 | disposition home health service (06) | DRG 854 ==
LOC: M ED INP 23:39 → M MSPAV 04-22 16:50 → M ED 22:00 → M PCU 04-16 01:30
PROC: 0KDV0ZZ Extraction of Right Foot Muscle, Open Approach (ICD-10-PCS; principal; 2018-04-20 08:38)
PROC: B40DYZZ Plain Radiography of Aorta and Bilateral Lower Extremity Arteries using Other Contrast (ICD-10-PCS; 2018-04-20 08:38)
PROC: 0Y6X0Z0 Detachment at Right 5th Toe, Complete, Open Approach (ICD-10-PCS; 2018-04-20 08:38)
DX: A41.9 Sepsis, unspecified organism (principal); M86.171 Other acute osteomyelitis, right ankle and foot; E11.52 Type 2 diabetes mellitus with diabetic peripheral angiopathy with gangrene; E11.42 Type 2 diabetes mellitus with diabetic polyneuropathy; I25.10 Atherosclerotic heart disease of native coronary artery without angina pectoris; I25.2 Old myocardial infarction; I12.9 Hypertensive chronic kidney disease with stage 1 through stage 4 chronic kidney disease, or unspecified chronic kidney disease; E78.5 Hyperlipidemia, unspecified; E11.69 Type 2 diabetes mellitus with other specified complication; M54.5 Low back pain; F17.210 Nicotine dependence, cigarettes, uncomplicated; N18.3 Chronic kidney disease, stage 3 (moderate); G47.33 Obstructive sleep apnea (adult) (pediatric); J44.9 Chronic obstructive pulmonary disease, unspecified; I48.91 Unspecified atrial fibrillation; L03.031 Cellulitis of right toe; E87.5 Hyperkalemia; R65.20 Severe sepsis without septic shock; E11.22 Type 2 diabetes mellitus with diabetic chronic kidney disease; E11.621 Type 2 diabetes mellitus with foot ulcer; L97.529 Non-pressure chronic ulcer of other part of left foot with unspecified severity; I44.7 Left bundle-branch block, unspecified; Z90.5 Acquired absence of kidney; Z85.528 Personal history of other malignant neoplasm of kidney; Z95.5 Presence of coronary angioplasty implant and graft; Z79.82 Long term (current) use of aspirin; Z79.02 Long term (current) use of antithrombotics/antiplatelets; Z79.899 Other long term (current) drug therapy; Z87.442 Personal history of urinary calculi

== ENCOUNTER → 2018-06-07 | Outpatient (CLI) | payer MEDICARE, MEDICAID | LOC: M RAD 08:47 | DX: I73.9 Peripheral vascular disease, unspecified (principal); I70.213 Atherosclerosis of native arteries of extremities with intermittent claudication, bilateral legs | CPT/HCPCS: 93926 ==

== ENCOUNTER → 2018-08-17 | Outpatient (REF) ==
[~2018-08-17] MED LIST: ASPI81TA24 PO; ATOR40TA75 PO; AUGM875T28 PO; BREO1INH INH; CIPR1TAB20 PO; CLOP75TA2 PO; CYCL5TAB PO; FLOM0.4C39 PO; FURO20TA2 PO; GLIP10TA6 PO; HYDR-3713 PO; INSUDET SC; METO1TAB32 PO; PANT40TA3 PO; PREG100CA PO; REME15TA PO; TRAZ10TA PO; VENL50TA2 PO
--- NOTE | 2018-08-17 09:57 | REP ---
RIGHT ANKLE, FOUR VIEWS: HISTORY: Degenerative joint disease. COMPARISON: Right foot date 04/15/2018. The patient is status post ORIF of a fracture of the distal fibula. A fixation plate and screws are present. Calcifications are present inferior to the medial malleolus. This represents ligamentous or tendon calcification. There are multiple fractures with associated dislocation involving the tarsal and metatarsal bones. Bone fragmentation is present. There is flattening of the arch. 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 Electronically Signed by Leroy Mercado MD 08/17/2018 10:10 A
== END ==
LOC: M SMT 08:57
PROVIDERS: ATTEND Internal Medicine
DX: Z02.71 Encounter for disability determination (principal)

== ENCOUNTER → 2019-05-22 | Outpatient (CLI) | payer MEDICAID, MEDICARE | LOC: M PT 11:13 | DX: Z89.511 Acquired absence of right leg below knee (principal) ==